=== PATIENT | female | born 1975 | race Caucasian/White ===

== ENCOUNTER 2019-03-12 12:59 | Outpatient (CLI) | payer OTHER ==
[~2019-03-12] VITALS: Ht 165.1 cm; Wt 63.8 kg
[2019-03-12] MEDS ORDERED: VEDOLIZUMAB 300 MG in SODIUM CHLORIDE 0.9% 250 ML IV ONE (13:30)
[2019-03-12] MEDS ORDERED: MESA250C PO (13:31)
[2019-03-12] MEDS ORDERED: LACT1CAP40 PO (13:31)
[2019-03-12] MEDS ORDERED: PRED20TA PO (13:31)
[2019-03-12 13:38] VITALS: BP 128/69
== END 2019-03-12 23:59 | disposition home or self-care (01) ==
LOC: INFUSION 12:59
PROVIDERS: ATTEND Internal Medicine Gastroenterology
DX: K51.918 Ulcerative colitis, unspecified with other complication (principal); K52.9 Noninfective gastroenteritis and colitis, unspecified; K51.00 Ulcerative (chronic) pancolitis without complications
CPT/HCPCS: 96365; J3380; J7050

== ENCOUNTER 2019-03-26 13:31 | Outpatient (CLI) | payer OTHER ==
[~2019-03-26] VITALS: Ht 165.1 cm; Wt 63.2 kg
== END 2019-03-26 23:59 | disposition home or self-care (01) ==
LOC: INFUSION 13:31
PROVIDERS: ATTEND Internal Medicine Gastroenterology
DX: K51.918 Ulcerative colitis, unspecified with other complication (principal); K51.00 Ulcerative (chronic) pancolitis without complications; K52.9 Noninfective gastroenteritis and colitis, unspecified
CPT/HCPCS: 96365; J3380; J7050

== ENCOUNTER 2019-08-13 13:13 | Outpatient (CLI) | payer OTHER ==
[~2019-08-13] VITALS: Ht 165.1 cm; Wt 65.4 kg
[~2019-08-13 13:13] MED LIST: LACT1CAP40 PO; MESA250C PO; PRED20TA PO
[2019-08-13 13:15] VITALS: BP 102/67
[2019-08-13] MEDS ORDERED: VEDOLIZUMAB 300 MG in SODIUM CHLORIDE 0.9% 250 ML IV ONE (14:00)
== END 2019-08-13 23:59 | disposition home or self-care (01) ==
LOC: INFUSION 13:13
PROVIDERS: ATTEND Internal Medicine Gastroenterology
DX: K51.918 Ulcerative colitis, unspecified with other complication (principal); K52.9 Noninfective gastroenteritis and colitis, unspecified; K51.00 Ulcerative (chronic) pancolitis without complications
CPT/HCPCS: 96365; J3380; J7050